=== PATIENT | female | born 1995 | race Caucasian/White ===

== ENCOUNTER 2016-07-04 06:50 | Emergency (ER) | payer OTHER ==
[2016-07-04] MEDS ORDERED: oxyCODONE 5 MG TABLET PO STA (07:23)
[2016-07-04] MEDS ORDERED: DEXAMETHASONE 10 MG/ML VIAL PO STA (07:23)
[2016-07-04] MEDS ORDERED: DEXAMETHASONE 10 MG/ML VIAL ONE (07:33)
[2016-07-04] MEDS ORDERED: CHERRY SYRUP 10 ML UDC PO ONE (07:33)
[2016-07-04] MEDS ORDERED: oxyCODONE 5 MG TABLET ONE (07:34)
[2016-07-04] MEDS ORDERED: HYDROcod/ACETAM 5/325 MG TABLET PO STA (08:21)
[2016-07-04] MEDS ORDERED: HYDROcod/ACETAM 5/325 MG TABLET ONE (08:24)
== END 2016-07-04 09:59 | disposition home or self-care (01) ==
DX: M79.661 Pain in right lower leg (principal); M54.9 Dorsalgia, unspecified; G89.29 Other chronic pain; Z98.890 Other specified postprocedural states; K60.2 Anal fissure, unspecified
CPT/HCPCS: 93971; 99283; A9270

== ENCOUNTER 2016-08-22 15:09 | Emergency (ER) | payer OTHER ==
--- NOTE | 2016-08-22 15:29 | ED Physician Documentation ---
PD HPI LOWER EXT INJURY - Stated complaint Stated Complaint: R ANKLE INJ - Chief complaint Chief Complaint: Ext Problem - History obtained from History obtained from: Patient - History of Present Illness PD HPI LOW EXT INJURY LOCATION: Right, Ankle Type of injury: Twist (she had inverted the ankle 2 weeks ago and was having still some limp with walking, then today had inversion and plantarflexion rolling the ankle. Has worse pain and swelling now. Hurts for walking.) Timing - onset: Today Timing - details: Abrupt onset, Still present Worsened by: Moving, Palpating, Other (walking) Associated symptoms: Swelling. No: Weakness, Numbness Similar symptoms before: No diagnosis (mild sprain 2 weeks ago and was not fully healed) Recently seen: Not recently seen Review of Systems Skin: denies: Abrasion (s), Laceration (s) Musculoskeletal: denies: Neck pain, Back pain Neurologic: denies: Focal weakness, Numbness PD PAST MEDICAL HISTORY - Past Medical History Cardiovascular: None Respiratory: None Neuro: None Endocrine/Autoimmune: None Musculoskeletal: Chronic back pain - Past Surgical History Past Surgical History: Yes - Present Medications Home Medications: Ambulatory Orders Medication Instructions Recorded Confirmed Docusate Sodium 250Mg Capsule 250 mg PO DAILY #30 capsule 07/04/16 [Colace 250Mg Capsule] Glycerin Adult Supp 1 each [place] DAILY #10 supp 07/04/16 Hydrocodone/Ibuprofen 07/04/16 [Hydrocodone-Ibuprofen 10-200] predniSONE [Deltasone] 20 mg PO [id number] #21 tab 07/04/16 - Allergies Allergies/Adverse Reactions: Allergies Allergy/AdvReac Type Severity Reaction Status Date / Time oxycodone AdvReac Itching Verified 08/22/16 15:16 - Social History Does the pt smoke?: No Smoking Status: Never smoker Does the pt drink ETOH?: No Does the pt have substance abuse?: No - Immunizations Immunizations are current?: Yes - POLST Patient has POLST: No PD ED PE NORMAL - Vitals Vital signs reviewed: Yes - General General: Alert and oriented X 3, No acute distress, Well developed/nourished - Derm Derm: Normal color, Warm and dry - Extremities Extremities: Other (right ankle with swelling and tenderness laterally. Achilles not tender. Toes not tender. She is most comfortable with foot in equines as hurts to pull it neutral. Normal cap refill and color. ) - Neuro Neuro: Alert and oriented X 3, No motor deficit, No sensory deficit Results - Vitals Vitals: Vital Signs - 24 hr 08/22/16 08/22/16 15:13 17:35 Temperature 36.7 C 36.8 C Heart Rate 94 78 Respiratory 14 16 Rate Blood Pressure 122/74 128/73 O2 Saturation 100 99 Oxygen O2 Source Room air - Rads (name of study) right ankle Radiology: Prelim report reviewed, EMP read contemporaneously (no fractures) PD MEDICAL DECISION MAKING - ED course Complexity details: reviewed results (no fractures, but good sprain. ), considered differential, d/w patient Departure - Departure Disposition: 01 Home, Self Care Clinical Impression: Right ankle sprain Qualifiers: Encounter type: initial encounter Involved ligament of ankle: other ligament Qualified Code(s): S93.491A - Sprain of other ligament of right ankle, initial encounter Condition: Stable Record reviewed to determine appropriate education?: Yes Instructions: ED Sprain Ankle W X Ray Follow-Up: MICK SMITH [Primary Care Provider] - Comments: Boot Orthosis when ambulating for healing time of about 3 weeks for sprain. Crutches initially as needed for pain and it is okay to progress weight bearing as tolerated. Ibuprofen and/or Tylenol as needed for pains. Elevate, ice, rest ankle often tonight and tomorrow. Recheck with PMD if not better over the next 1 -2 weeks. Forms: Activity restrictions Discharge Date/Time: 08/22/16 17:37
--- NOTE | 2016-08-22 17:14 | XRAY Preliminary Report ---
Exam: XR Ankle 3 View RT IMPRESSION: 1. Soft tissue swelling without acute fracture or dislocation. [facility] SITE ID: [id number]
--- NOTE | 2016-08-22 17:16 | XRAY Report ---
EXAM: RIGHT ANKLE RADIOGRAPHY EXAM DATE: 08/22/2016 04:52 PM. CLINICAL HISTORY: Inversion injury at the right ankle. COMPARISON: None. TECHNIQUE: 3 views. FINDINGS: Bones: Normal. No fractures or bone lesions. Joints: Normal. No effusion. No subluxations. The ankle mortise is normally aligned. Soft Tissues: Soft tissue swelling. IMPRESSION: 1. Soft tissue swelling without acute fracture or dislocation. [facility] Referring Provider Line: [phone] SITE ID: [id number]
[2016-08-22 17:36] VITALS: BP 128/73
== END 2016-08-22 17:37 | disposition home or self-care (01) ==
LOC: ED 15:09
DX: S93.401A Sprain of unspecified ligament of right ankle, initial encounter (principal); X50.1XXA Overexertion from prolonged static or awkward postures, initial encounter
CPT/HCPCS: 99282; 99283

== ENCOUNTER 2019-04-03 09:00 | Outpatient (CLI) | payer OTHER ==
[2019-04-03 21:18] LABS: TRICHOMONAS VAGINALIS DNA NEGATIVE (NEGATIVE)
== END 2019-04-03 23:59 | disposition home or self-care (01) ==
LOC: LAB.R 09:00
PROVIDERS: ATTEND Obstetrics & Gynecology
DX: Z36.85 Encounter for antenatal screening for Streptococcus B (principal)
CPT/HCPCS: 87491; 87591; 87661; 87797

== ENCOUNTER 2019-04-11 15:20 | Outpatient (CLI) | payer OTHER ==
[2019-04-11 15:49] LABS: BASOPHILS % (AUTO) 0.3 %; EOSINOPHILS # (AUTO) 0.1 10^3/uL (0.0-0.7); EOSINOPHILS % (AUTO) 0.6 %; HGB - HEMOGLOBIN 11.9 g/dL (12.0-16.0); LYMPHOCYTES # (AUTO) 3.1 10^3/uL (1.5-3.5); LYMPHOCYTES % (AUTO) 22.1 %; MEAN CORPUSCULAR HGB CONC 32.7 g/dL (32.0-36.0); MEAN CORPUSCULAR VOLUME 82.7 fL (81.0-99.0); MEAN PLATELET VOLUME 10.6 fL (7.9-10.8); MONOCYTES # (AUTO) 1.3 10^3/uL (0.0-1.0); MONOCYTES % (AUTO) 9.6 %; NEUTROPHILS # (AUTO) 9.2 10^3/uL (1.5-6.6); NEUTROPHILS % (AUTO) 66.1 %; PLT - PLATELET COUNT 259 10^3/uL (130-450); RED CELL DISTRIBUTION WIDTH 14.3 % (12.0-15.0); WHITE BLOOD COUNT 13.9 x10^3/uL (4.8-10.8)
[2019-04-11 16:01] LABS: ALBUMIN 3.2 g/dL (3.2-5.5); ALBUMIN/GLOBULIN RATIO 0.8 (1.0-2.2); BILIRUBIN,TOTAL 0.3 mg/dL (0.2-1.0); CALCIUM 9.1 mg/dL (8.5-10.3); CREATININE 0.6 mg/dL (0.4-1.0); TOTAL PROTEIN 7.3 g/dL (6.7-8.2)
[2019-04-11 16:11] LABS: CREATININE,URINE 207.5 mg/dL; PROTEIN/CREATININE RATIO,URINE 0.1 (<=0.2)
[2019-04-11 16:37] VITALS: BP 120/69
--- NOTE | 2019-04-11 17:56 | PROVIDER PROGRESS NOTE ---
- HPI Chief Complaint: Headache (blured vision epigastric vision. abdominal pain. no bleeding) Current : Current EDU 05/08/19 Gestation 36 Weeks and 1 Days 3 Para 1 Vital Signs Temperature 36.8 C 04/11/19 15:35 Heart Rate 98 04/11/19 15:35 Respiratory Rate 16 04/11/19 15:35 Blood Pressure 122/68 04/11/19 15:35 O2 Saturation 99 04/11/19 15:35 Temperature 36.8 C 04/11/19 15:35 Heart Rate 95 04/11/19 15:46 Respiratory Rate 16 04/11/19 15:35 Blood Pressure 120/69 04/11/19 16:15 O2 Saturation 99 04/11/19 15:35 - Procedures OB Procedure Performed: NST (reactive) NST Procedure: NST Procedure Start Date 04/11/19 Start Time 15:30 Stop Time 16:24 Vibroacoustic Stimulation Used Yes Patient States Movement Yes Procedure Details: Labs normal. P/C 0.1 - Plan Plan: ultrasound to RO abruption
--- NOTE | 2019-04-11 19:33 | Ultrasound Report ---
Reason: abd pain Procedure Date: 04/11/2019 Accession Number: [id number] / [id number] Procedure: US - Abdomen Limited CPT Code: Final Report FULL RESULT: EXAM: ABDOMEN ULTRASOUND LIMITED, RUQ EXAM DATE: 04/11/2019 06:48 PM. CLINICAL HISTORY: Abdominal pain. COMPARISON: None. TECHNIQUE: Real-time scanning was performed with static images obtained. FINDINGS: Liver: Normal in size and echotexture. 16.2 cm. Main portal vein flow: Hepatopetal. Gallbladder: Normal. No stones, wall thickening, or sonographic Salvador's sign. Biliary System: CBD measures 4 mm. No intrahepatic or extrahepatic ductal dilatation. Other: The right kidney is unremarkable without hydronephrosis. IMPRESSION: Normal. [facility]
--- NOTE | 2019-04-11 19:47 | Ultrasound Report ---
Reason: r/o abruption Procedure Date: 04/11/2019 Accession Number: [id number] / [id number] Procedure: US - OB Limited CPT Code: Final Report FULL RESULT: EXAM: LIMITED OBSTETRICAL ULTRASOUND EXAM DATE: 04/11/2019 06:51 PM. CLINICAL HISTORY: Abdominal pain, evaluate for placental abruption. COMPARISON: ABDOMEN LIMITED 04/11/2019 6:19 PM. TECHNIQUE: Real-time sonographic evaluation of the fetus performed by the technical manager chemical plant. Multiple customer loyalty representative static images were saved for review. DATING: Established EGA 36 with SHANA 05/08/2019. GENERAL EVALUATION Hollis . Cardiac activity: 135 bpm. movement: Visualized. Presentation: Cephalic. Placenta: Posterior fundal position. Mildly limited visualization. No evidence of abruption. Amniotic fluid: Normal. MARISSA 14.4 cm. MVP 4.4 cm. IMPRESSION: 1. Hollis live intrauterine with gestational age 36 weeks 1 day based on established SHANA. 2. No evidence for placental abruption. [facility]
== END 2019-04-11 19:35 | disposition home or self-care (01) ==
LOC: WFO 15:20 → FBP 15:21 → WFO 19:35
PROVIDERS: ATTEND Obstetrics & Gynecology
DX: O99.89 Other specified diseases and conditions complicating pregnancy, childbirth and the puerperium (principal); R10.9 Unspecified abdominal pain; R51 Headache; H53.8 Other visual disturbances; Z3A.36 36 weeks gestation of pregnancy
CPT/HCPCS: 36415; 59025; 76705; 76815; 80053; 82570; 83615; 84156; 84450; 84550; 85025; 85384; 99213

== ENCOUNTER 2019-05-02 11:50 | Outpatient (CLI) | payer OTHER ==
--- NOTE | 2019-05-03 15:48 | Ultrasound Report ---
Reason: SCREENING FOR MACROSOMIA Procedure Date: 05/02/2019 Accession Number: [id number] / [id number] Procedure: US - OB F/U or Repeat CPT Code: Final Report FULL RESULT: EXAM: FOLLOW-UP OBSTETRICAL ULTRASOUND EXAM DATE: 05/02/2019 12:44 PM. CLINICAL HISTORY: macrosomia COMPARISON: OB LIMITED 04/11/2019 6:03 PM. TECHNIQUE: Real-time sonographic evaluation of the fetus performed by the churn driller. Multiple product representative static images were saved for review. DATING: Established EGA 39 weeks 1 day with SHANA 05/08/2019 based on LMP. EGA 39 weeks 5 days with SHANA 05/04/2019 based on stated dating. EGA 40 weeks 0 days with SHANA 05/02/2019 based on the current ultrasound. GENERAL EVALUATION Hollis . Cardiac activity: 121 bpm. movement: Visualized. Presentation: Cephalic. Placenta: Posterior and right position. Amniotic fluid: Normal. MARISSA 12.2 cm. MVP 3.5 cm. BIOMETRY Bi-Parietal Diameter (BPD): 9.6 cm, 39 weeks 0 days Head Circumference (HC): 35 cm, 40 weeks 6 days Abdominal Circumference (AC): 37.6 cm, 41 weeks 2 days Femur Length (FL): 7.5 cm, 38 weeks 4 days Head circumference to abdomen circumference ratio 0.94. Estimated Weight: 4085 g, 87th percentile for 39 weeks 5 days. IMPRESSION: 1. Estimated weight 4085 g, 87th percentile using 39 weeks 5 days. 2. Cephalic inferior position. Normal amniotic fluid volume. [facility]
== END 2019-05-02 11:51 | disposition home or self-care (01) ==
LOC: DI 11:50
PROVIDERS: ATTEND Obstetrics & Gynecology
DX: Z36.88 Encounter for antenatal screening for fetal macrosomia (principal); O99.820 Streptococcus B carrier state complicating pregnancy; Z3A.39 39 weeks gestation of pregnancy
CPT/HCPCS: 76816

== ENCOUNTER 2019-05-05 16:52 | Inpatient (IN) | payer OTHER ==
[2019-05-05] MEDS ORDERED: SODIUM CHLORIDE FLUSH 0.9% 10 ML SYRINGE IVP PRN (17:40)
[2019-05-05] MEDS ORDERED: METHYLERGONOVINE 0.2 MG/ML AMP IM PRN (17:40)
[2019-05-05] MEDS ORDERED: fentaNYL 100 MCG/2 ML VIAL IVP PRN (17:40)
[2019-05-05] MEDS ORDERED: ONDANSETRON ODT 4 MG TABLET TL PRN (17:40)
[2019-05-05] MEDS ORDERED: CARBOPROST TROMETHAMINE 250 MCG/ML AMP IM PRN (17:40)
[2019-05-05] MEDS ORDERED: AMPICILLIN 2 GM in SODIUM CHLORIDE 0.9% MINIBAG 100 ML IV ONE (17:40)
[2019-05-05] MEDS ORDERED: ACETAMINOPHEN 325 MG TABLET PO PRN (17:40)
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
[2019-05-05] MEDS ORDERED: ZOLPIDEM 5 MG TABLET PO PRN (17:44)
[2019-05-05 18:20] LABS: BASOPHILS # (AUTO) 0.1 10^3/uL (0.0-0.1); BASOPHILS % (AUTO) 0.4 %; EOSINOPHILS # (AUTO) 0.1 10^3/uL (0.0-0.7); LYMPHOCYTES # (AUTO) 3.7 10^3/uL (1.5-3.5); LYMPHOCYTES % (AUTO) 30.1 %; MEAN CORPUSCULAR HEMOGLOBIN 26.1 pg (27.0-31.0); MEAN CORPUSCULAR VOLUME 81.7 fL (81.0-99.0); MEAN PLATELET VOLUME 10.8 fL (7.9-10.8); MONOCYTES # (AUTO) 1.2 10^3/uL (0.0-1.0); NEUTROPHILS % (AUTO) 57.6 %; PLT - PLATELET COUNT 249 10^3/uL (130-450); RED BLOOD COUNT 4.59 10^6/uL (4.20-5.40); RED CELL DISTRIBUTION WIDTH 15.3 % (12.0-15.0); WHITE BLOOD COUNT 12.2 x10^3/uL (4.8-10.8)
[2019-05-05] MEDS: miSOPROStoL 100 MCG TABLET PO SCH ×2 (18:38→22:27)
[2019-05-05] MEDS ORDERED: AMPICILLIN 1 GM in SODIUM CHLORIDE 0.9% MINIBAG 100 ML IV SCH (22:00)
[2019-05-05] MEDS: SODIUM CHLORIDE FLUSH 0.9% 10 ML SYRINGE IVP SCH (22:28)
[2019-05-06] MEDS: miSOPROStoL 100 MCG TABLET PO SCH (02:33)
--- NOTE | 2019-05-06 07:02 | PROVIDER PROGRESS NOTE ---
Labor Progress Note - Labor Progress Note Labor Progress Note/Additional Text: S: painful cramping and back pain since about 4h ago O: Cat 1 NST [place] 3UC in 10min SVE fingertip/80/-3/med/post IOL balloon placed without difficulty A/P: P0 elective/LGA IOL, latent. Stop miso due to UCs. Still unfavorable so placed balloon and start pitocin.
[2019-05-06] MEDS ORDERED: OXYTOCIN/DEXTROSE 5 % 30 UNIT/500 ML BAG IV SCH (08:00)
[2019-05-06] MEDS: SODIUM CHLORIDE FLUSH 0.9% 10 ML SYRINGE IVP SCH ×2 (08:32→22:57)
[2019-05-06] MEDS ORDERED: valACYclovir 500 MG TABLET PO SCH (09:00)
[2019-05-06] MEDS: LACTATED RINGERS 1,000 ML IV SCH ×2 (09:11→11:19)
[2019-05-06] MEDS ORDERED: ROPIVACAINE 0.2% 200 MG/100 ML BAG EP ONE (09:37)
[2019-05-06] MEDS ORDERED: ROPIVACAINE 0.2% PF 20ML VIAL ONE (09:37)
[2019-05-06] MEDS ORDERED: ePHEDrine 50 MG/ML VIAL IVP PRN (10:16)
[2019-05-06] MEDS ORDERED: diphenhydrAMINE INJ 50 MG/ML VIAL IVP PRN (10:16)
[2019-05-06] MEDS ORDERED: LACTATED RINGERS 500 ML IV ONE (10:16)
[2019-05-06] MEDS ORDERED: NALBUPHINE 10 MG/ML AMP IVP PRN (10:16)
[2019-05-06] MEDS ORDERED: NALOXONE 0.4 MG/ML VIAL IVP PRN (10:16)
[2019-05-06] MEDS ORDERED: METOCLOPRAMIDE 10 MG/2 ML VIAL IVP PRN (10:16)
--- NOTE | 2019-05-06 10:20 | ANESTHESIA ---
Pre-Anesthesia VS, & Labs - Diagnosis term labor, IUP - Procedure vaginal delivery Height 5 ft 9 in Weight (kg) 131.542 kg Body Mass Index 36.9 - NPO Last Food Intake: breakfast@829 - Is Patient ?: Yes - Lab Results Current Lab Results: Laboratory Tests 05/05/19 18:10: Blood Type A NEGATIVE, Antibody Screen NEGATIVE 05/05/19 18:10: WBC 12.2 H, RBC 4.59, Hgb 12.0, Hct 37.5, MCV 81.7, MCH 26.1 L, MCHC 32.0, RDW 15.3 H, Plt Count 249, MPV 10.8, Neut # (Auto) 7.0 H, Lymph # (Auto) 3.7 H, [place] # (Auto) 1.2 H, Eos # (Auto) 0.1, Baso # (Auto) 0.1, Absolute Nucleated RBC 0.00, Nucleated RBC % 0.0 Lab results reviewed: Yes Fish Bones: 05/05/19 18:10 Home Medications and Allergies Active Medications Acetaminophen (Tylenol) 650 mg PO Q6H PRN PRN Reason: Pain or Fever Fentanyl (Fentanyl) 50 mcg IVP Q1H PRN PRN Reason: PAIN Ampicillin Sodium 1 gm/ Sodium (Chloride) 100 mls @ 200 mls/hr IV Q4H [facility] Lactated Ringer's (Lr) 1,000 mls @ 100 mls/hr IV .Q10H [facility] Last Admin: 05/06/19 09:11 Dose: 100 mls/hr Oxytocin/Dextrose (Pitocin/Dextrose 5%) 30 unit in 500 mls @ 1 mls/hr IV TITR [facility]; Protocol Last Admin: 05/06/19 09:10 Dose: 1 milliunit/min, 1 mls/hr Methylergonovine Maleate (Methergine Inj) 0.2 mg IM Q4H PRN PRN Reason: Post- Hemorrhage Ondansetron HCl (Zofran Odt) 4 mg TL Q6H PRN PRN Reason: Nausea / Vomiting Sodium Chloride (Normal Saline Flush 0.9%) 10 ml IVP 0100,0900,1700 [facility] Last Admin: 05/06/19 08:32 Dose: 10 ml Sodium Chloride (Normal Saline Flush 0.9%) 10 ml IVP PRN PRN PRN Reason: NEEDED PER PROVIDER ORDERS Valacyclovir HCl (Valtrex) 500 mg PO DAILY [facility] Last Admin: 05/06/19 08:32 Dose: 500 mg Zolpidem Tartrate (Ambien) 5 mg PO QPM PRN PRN Reason: Insomnia Last Admin: 05/05/19 23:23 Dose: 5 mg Hydrocodone/Ibuprofen [Hydrocodone-Ibuprofen 10-200] 07/04/16 Allergies/Adverse Reactions: Allergies Allergy/AdvReac Type Severity Reaction Status Date / Time oxycodone AdvReac Itching Verified 08/22/16 15:16 shrimp AdvReac Itching Verified 05/06/19 03:53 Anes History & Medical History - Anesthetic History Anesthesia Complications: reports: No previous complications Family history of Anesthesia Complications: Denies Family history of Malignant Hyperthermia: Denies - Medical History Cardiovascular: reports: None Pulmonary: reports: None Neuro: reports: Other (sciatica, low back pain, frequent tingling in lower extremities w/pain) Musculoskeletal: reports: Chronic back pain Endocrine/Autoimmune: reports: None Smoking Status: Never smoker - Surgical History Gynecologic: Dilation and currettage Orthopedic: Other (microdiscetomy x2 at L4-5) Exam General: Alert, Oriented x3, Cooperative Dental: WNL Mouth Openin Fingerbreadth Neck Mobility: Normal Mallampati classification: II Thyromental Distance: 4-6 cm Respiratory: No respiratory distress Cardiovascular: Regular rate Mental/Cognitive Status: Alert/Oriented X3, Normal for patient Cognitive Status: Within normal limits Plan Anesthesia Type: Epidural Consent for Procedure(s) Verified and Reviewed: Yes Code Status: Attempt Resuscitation ASA classification: 2-Mild systemic disease Is this case an emergency?: No
[2019-05-06] MEDS: ONDANSETRON 4 MG/2 ML VIAL IVP PRN ×2 (11:17→21:32)
--- NOTE | 2019-05-06 11:45 | CONSULTATION NOTE ---
Consultation Report: Call to [id number] for reports that epidural has moved up to armpits and pt is nauseated w/BP 88/65. Ordered pump off, 500cc fluid bolus as well as Ephedrine 5mg IV. BP stabilized upon arrival 125SBP, pt states N/V is better. Zofran was also administered prior to arrival. Ephedrine not given as BP normalized prior to administration. Sensory level appreciated at T8 on L, T5-6 @R. Pump restarted at 10cc/hr with 4cc PCEA q10 if desired. Pt states she feels pressure with contractions, no pain. Will continue to follow.
[2019-05-06] MEDS ORDERED: AMPICILLIN 2 GM in SODIUM CHLORIDE 0.9% MINIBAG 100 ML IV SCH (13:00)
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
--- NOTE | 2019-05-06 17:20 | CONSULTATION NOTE ---
Consultation Report: Pt with complaints of new and increasing pain with contractions. Sensory level assessed at T12 bilaterally and both legs are "heavy". Epidural dosed with 10cc 0.2% in 2 divided 5cc injections. Pt states relief of discomfort. VSS.
[2019-05-06] MEDS: ROPIVACAINE 0.2% 200 MG/100 ML BAG EP PRN (18:14)
[2019-05-06] MEDS: AMPICILLIN 1 GM in SODIUM CHLORIDE 0.9% MINIBAG 100 ML IV SCH ×2 (18:21→23:01)
[2019-05-06] MEDS ORDERED: CALCIUM CARBONATE CHEW 500 MG TABLET PO PRN (21:34)
[2019-05-06] MEDS ORDERED: CITRIC ACID/SODIUM CITRATE 15 ML UDC PO ONE (21:34)
[2019-05-06] MEDS ORDERED: fentaNYL 100 MCG/2 ML VIAL ONE (21:58)
--- NOTE | 2019-05-06 22:13 | CONSULTATION NOTE ---
Consultation Report: Call to 2101 for new discomfort with contractions 2mins apart. Sensory level assessed at T10@R, T12@L, able to move both feet but not able to lift legs from bed. Epidural bolused with Fentanyl 100mcg in 8cc PFNS. Pt states warm sensation to pelvic area and contraction pain now "70%" better, 3 mins post injection.
--- NOTE | 2019-05-06 22:33 | PROVIDER PROGRESS NOTE ---
Labor Progress Note - Labor Progress Note Labor Progress Note/Additional Text: Comfortable with re-bolus AVSS Category 1 NST MVU about 165 Pit[place] at 20 SVE 5-6/90/-2 A/P: challenge is to get adequate contractions. Progressive SVE change. Continue to work up on pitocin to max of 30.
[2019-05-07] MEDS: ROPIVACAINE 0.2% 200 MG/100 ML BAG EP PRN (00:09)
--- NOTE | 2019-05-07 00:50 | PROVIDER PROGRESS NOTE ---
Labor Progress Note - Labor Progress Note Labor Progress Note/Additional Text: Cat 1 NST AVSS MVU's about 200 now for 2h SVE 6-7//-2. Continued SVE change, slower than expected, but progressive. Baby tolerating labor well. Plan to recheck in 1-2h more.
[2019-05-07] MEDS: SODIUM CHLORIDE FLUSH 0.9% 10 ML SYRINGE IVP SCH (02:15)
[2019-05-07] MEDS ORDERED: ROPIVACAINE 0.5% PF 20 ML AMPULE ONE ×2 (02:53)
--- NOTE | 2019-05-07 03:00 | PROVIDER PROGRESS NOTE ---
Subjective - Subjective Subjective: Had to turn off pit due to a period of marked variability. SVE now 5cm/90/-2. Pt advised that it is unlikely that she will deliver vaginally due to failure to progress. recommended and accepted. Objective - Vital Signs/Intake & Output Intake & Output: Intake & Output 05/04/19 05/05/19 05/06/19 05/07/19 23:59 23:59 23:59 23:59 Intake Total 800 815.000 400 Output Total 1770 1500 Balance 800 -955.000 -1100 - Lab Results Fish Bones: 05/05/19 18:10 Other Labs: Lab Results x24hrs 05/05/19 05/05/19 Range/Units 18:10 17:45 Blood Type A NEGATIVE Blood Type Recheck A NEGATIVE Antibody Screen NEGATIVE Crossmatch IS Only See Detail
[2019-05-07] MEDS ORDERED: ceFAZolin 2 GM in SODIUM CHLORIDE 0.9% 100ML 100 ML IV ONE (03:06)
[2019-05-07] MEDS ORDERED: ONDANSETRON 4 MG/2 ML VIAL IVP ONE (03:16)
[2019-05-07] MEDS ORDERED: LIDOCAINE-MPF 2% 5 ML VIAL IM ONE (03:16)
[2019-05-07] MEDS ORDERED: MORPHINE PF 5 MG/10 ML AMP EP ONE (03:16)
[2019-05-07] MEDS ORDERED: KETOROLAC 30 MG/ML VIAL IVP ONE (03:16)
[2019-05-07] MEDS ORDERED: ACETAMINOPHEN 1,000 MG/100 ML 100 ML IV ONE (03:16)
[2019-05-07] MEDS ORDERED: LACTATED RINGERS 1,000 ML IV ONE ×2 (03:29→04:24)
[2019-05-07] MEDS ORDERED: SODIUM CHLORIDE FLUSH 0.9% 10 ML SYRINGE IVP PRN (04:51)
[2019-05-07] MEDS ORDERED: WITCH HAZEL/GLYCERIN 1 PAD TOP PRN (04:51)
[2019-05-07] MEDS ORDERED: HYDROCORTISONE 1% CREAM 28 GM TUBE PR PRN (04:51)
[2019-05-07] MEDS ORDERED: OXYTOCIN/DEXTROSE 5 % 30 UNIT/500 ML BAG IV PRN (04:56)
--- NOTE | 2019-05-07 04:59 | OPERATIVE REPORT ---
Operative Report - General Admit Date: 05/05/19 - Other Other Information/Narrative: preop: failure to progress, iup at 39w postop: same procedure: primary low transverse Surg: me Assist: Tabler Anes: epidural EBL 500 IVF 1300 UOP 125 complic none dispo recovery specimens cord blood for type
[2019-05-07] MEDS ORDERED: ACETAMINOPHEN 500 MG TABLET PO SCH (05:00)
--- NOTE | 2019-05-07 07:43 | OPERATIVE REPORT ---
DATE OF SERVICE: 05/07/2019 Physician: Re Fernández MD PREOPERATIVE DIAGNOSIS: Intrauterine at 39 weeks and failure to progress. POSTOPERATIVE DIAGNOSIS: Status post primary section. PROCEDURE PERFORMED: Primary low transverse section. SURGEON: Re Fernández MD RN WELLNESS: Ondina Glass MD ANESTHESIA: Epidural. ESTIMATED BLOOD LOSS: 500 mL INTRAVENOUS FLUIDS: 1300 mL of crystalloid. URINE OUTPUT: 125 mL, clear. COUNTS: Correct x2. COMPLICATIONS: None apparent. DISPOSITION: Stable to the recovery room. PROPHYLAXIS: SCDs to bilateral lower extremities. Ancef 2 grams prior to skin incision. SPECIMENS: Umbilical cord blood sent for typing. FINDINGS: Liveborn female, weight is pending. Apgars 9 at 1 minute and 9 at 5 minutes. Normal uter us, ovaries, and fallopian tubes. Thick meconium-stained amniotic fluid. COUNSELING: Patient is a 23-year-old G3, P0 at 39 weeks, undergoing induction of labor for an estima gardenia weight of 9-1/2 pounds and the father of the baby leaving on deployment in 3 weeks. She re ceived an epidural for pain control. She was induced with misoprostol followed by a cervical ripenin g balloon followed by Pitocin. Her Pitocin was up to 30 milliunits per minute. It took quite some t rafal to get adequate contractions on the Pitocin. This was achieved eventually. From 4 cm to 6 cm, p atient had a very slow dilation course over more than 6 hours. After her Pitocin was turned off, bec ause of a period of marked variability, her cervical exam went from 6 to 7 cm back to 5 cm. The stat ion was always -2. With the lack of descent and lack of cervical dilation, the patient was advised t hat she was unlikely to be able to deliver vaginally and primary was recommended. The proc edure was described as was recovery. Risks including, but not limited to bleeding, infection, trauma to local organs, anesthesia complications and problems with future pregnancies because of scar tissu e on the uterus were discussed. All questions were answered and the operative consent was signed. T he alternative of further trials of vaginal delivery was not encouraged. DESCRIPTION OF PROCEDURE: Patient was brought to the operating room where her existing epidural was bolused. Her SCDs and Kam catheter were also preexisting. She was placed in a left tilt and prepp ed and draped in the usual sterile fashion. A scalpel was used to make a Pfannenstiel skin incision in the area of the patient's pannus fold. This was carried down to the fascia, which was nicked in t he midline bilaterally. The fascial incision was extended laterally and slightly superiorly. Hero s were placed on the inferior margin and the fascial incision and the fascia was bluntly and sharply dissected off of the underlying rectus. The same was performed superiorly. The peritoneum was blunt ly entered. The incision was stretched and room was deemed to be adequate. A bladder retractor was placed. A scalpel was used to make a transverse incision in the lower uterine segment. The uterine cavity was entered with a finger. The uterine incision was extended laterally by applying pressure c audally and cranially. The head was elevated easily and then delivered with the assistance of fundal pressure. The shoulders and body easily followed. The cord was left pulsating for 30 seconds and the baby was vigorous. The cord was clamped x2 and cut and the baby was handed to the pediatric ha in waiting. The placenta was delivered with external uterine massage. The uterine cavity was cu retted with a dry sponge until there was no return of membranes. The uterine incision was closed wit h a running layer of 0 Vicryl. A second imbricating layer was performed. Hemostasis was excellent, and the uterine incision fascia and rectus. The fascia was closed with 0 Vicryl. The subcutaneous t issues were irrigated and then reapproximated with interrupted sutures of 2-0 Vicryl. The skin was c losed with 4-0 Monocryl. Dermabond was then applied. Fundal massage yielded a normal amount of bloo d and clot. TD: 05/07/2019 04:46
[2019-05-07] MEDS ORDERED: HYDROmorphone 1 MG/ML CARPUJECT IVP ONE (08:30)
[2019-05-07] MEDS: HYDROcod/ACETAM 5/325 MG TABLET PO PRN ×4 (08:36→22:14)
[2019-05-07] MEDS: SIMETHICONE CHEW 80 MG TABLET PO SCH (08:36)
[2019-05-07] MEDS: DOCUSATE SODIUM 100 MG CAPSULE PO SCH (08:36)
[2019-05-07] MEDS ORDERED: SODIUM CHLORIDE FLUSH 0.9% 10 ML SYRINGE IVP SCH (09:00)
[2019-05-07] MEDS: KETOROLAC 30 MG/ML VIAL IVP PRN ×2 (11:56→18:13)
[2019-05-07] MEDS ORDERED: RHO(D) IMMUNE GLOBULIN 300 MCG SYRINGE IM ONE (20:48)
--- NOTE | 2019-05-07 22:15 | PROVIDER PROGRESS NOTE ---
Subjective - Prog Note Date Prog Note Date: 05/07/19 Prog Note Time: 22:12 - Subjective Pt reports feeling: Improved Subjective: POD#0 s/p LTCS Doing well. Up and out of bed. Kam catheter remains in place. Tolerating po. Pain well managed if meds given on schedule. Objective - Vital Signs/Intake & Output Vital Signs: Vital Signs x48h Temp Pulse Resp BP BP Pulse Ox 05/07/19 19:50 98.8 F 90 18 113/53 L 98 05/07/19 14:35 98.2 F 102 H 18 107/65 98 Intake & Output: Intake & Output 05/04/19 05/05/19 05/06/19 05/07/19 23:59 23:59 23:59 23:59 Intake Total 800 815.000 400 Output Total 1770 4230 Balance 800 -955.000 -3830 - Objective General Appearance: positive: No acute distress Respiratory: positive: No respiratory distress Cardiovascular: positive: Regular rate & rhythm Abdomen: positive: Other (appropriately tender FF below umbi Incision CDI with dermabond in place) Extremities: positive: Non-tender Neurologic/Psychiatric: positive: Oriented x3 - Lab Results Fish Bones: 05/05/19 18:10 Other Labs: Lab Results x24hrs 05/07/19 Range/Units 09:43 Blood Type A NEGATIVE Maternal Bleed NEGATIVE (NEGATIVE) Assessment/Plan - Problem List (1) deliv NOS-unsp Impression: POD#0 s/p LTCS Routine post op care DC Kam in am Encourage ambulation Transition to po pain meds Tolerating po Rhogam given for Rh incompatibility Cont in-patient care
[2019-05-08] MEDS: DOCUSATE SODIUM 100 MG CAPSULE PO SCH ×3 (00:16→22:03)
[2019-05-08] MEDS: KETOROLAC 30 MG/ML VIAL IVP PRN (00:16)
[2019-05-08] MEDS: HYDROcod/ACETAM 5/325 MG TABLET PO PRN ×6 (02:05→22:03)
[2019-05-08] MEDS: SIMETHICONE CHEW 80 MG TABLET PO SCH ×4 (04:27→22:03)
[2019-05-08] MEDS: IBUPROFEN 600 MG TABLET PO SCH ×4 (06:10→23:58)
[2019-05-08 07:55] LABS: BASOPHILS # (AUTO) 0.1 10^3/uL (0.0-0.1); BASOPHILS % (AUTO) 0.5 %; EOSINOPHILS # (AUTO) 0.1 10^3/uL (0.0-0.7); EOSINOPHILS % (AUTO) 0.9 %; HGB - HEMOGLOBIN 10.1 g/dL (12.0-16.0); LYMPHOCYTES # (AUTO) 2.9 10^3/uL (1.5-3.5); LYMPHOCYTES % (AUTO) 22.2 %; MEAN CORPUSCULAR HEMOGLOBIN 26.9 pg (27.0-31.0); MEAN CORPUSCULAR HGB CONC 32.1 g/dL (32.0-36.0); MEAN PLATELET VOLUME 11.1 fL (7.9-10.8); MONOCYTES % (AUTO) 7.5 %; NEUTROPHILS # (AUTO) 8.9 10^3/uL (1.5-6.6); PLT - PLATELET COUNT 206 10^3/uL (130-450); RED BLOOD COUNT 3.75 10^6/uL (4.20-5.40); RED CELL DISTRIBUTION WIDTH 15.9 % (12.0-15.0); WHITE BLOOD COUNT 13.1 x10^3/uL (4.8-10.8)
--- NOTE | 2019-05-08 17:46 | PROVIDER PROGRESS NOTE ---
Subjective - Prog Note Date Prog Note Date: 05/08/19 Prog Note Time: 08:45 - Subjective Pt reports feeling: Improved Subjective: Doing well. Kam removed and has voided. Ambulating within room. Pain well managed. BF going well Objective - Vital Signs/Intake & Output Vital Signs: Vital Signs x48h Temp Pulse Resp BP Pulse Ox 05/08/19 15:58 98.2 F 94 18 115/66 100 Intake & Output: Intake & Output 05/05/19 05/06/19 05/07/19 05/08/19 23:59 23:59 23:59 23:59 Intake Total 800 815.000 400 Output Total 1770 4230 1000 Balance 800 -955.000 -3830 -1000 - Objective General Appearance: positive: No acute distress Neck: positive: Nml inspection Respiratory: positive: No respiratory distress, Breath sounds nml Cardiovascular: positive: Regular rate & rhythm Abdomen: positive: Other (Incision line CDI; dermabond over incision only FF below umbi. appropriately tender) Extremities: positive: Non-tender, No pedal edema Neurologic/Psychiatric: positive: Oriented x3 - Lab Results Fish Bones: 05/08/19 07:19 Other Labs: Lab Results x24hrs 05/08/19 05/05/19 Range/Units 07:19 18:10 WBC 13.1 H (4.8-10.8) x10^3/uL RBC 3.75 L (4.20-5.40) 10^6/uL Hgb 10.1 L (12.0-16.0) g/dL Hct 31.5 L (37.0-47.0) % MCV 84.0 (81.0-99.0) fL MCH 26.9 L (27.0-31.0) pg MCHC 32.1 (32.0-36.0) g/dL RDW 15.9 H (12.0-15.0) % Plt Count 206 (130-450) 10^3/uL MPV 11.1 H (7.9-10.8) fL Neut # (Auto) 8.9 H (1.5-6.6) 10^3/uL Lymph # (Auto) 2.9 (1.5-3.5) 10^3/uL Gillespie # (Auto) 1.0 (0.0-1.0) 10^3/uL Eos # (Auto) 0.1 (0.0-0.7) 10^3/uL Baso # (Auto) 0.1 (0.0-0.1) 10^3/uL Absolute Nucleated RBC 0.00 x10^3/uL Nucleated RBC % 0.0 /100WBC Crossmatch IS Only See Detail Assessment/Plan - Problem List (1) deliv NOS-unsp Impression: POD#1 s/p LTCS Place steristrips to reinforce incision Routine post op care Voiding Encourage ambulation Transition to po pain meds Tolerating po Rhogam given for Rh incompatibility Cont in-patient care Anticipate DC home in am
[2019-05-09] MEDS: HYDROcod/ACETAM 5/325 MG TABLET PO PRN ×4 (01:52→14:48)
[2019-05-09] MEDS: SIMETHICONE CHEW 80 MG TABLET PO SCH ×2 (05:51→14:48)
[2019-05-09] MEDS: IBUPROFEN 600 MG TABLET PO SCH ×2 (05:51→14:49)
[2019-05-09 09:34] VITALS: BP 95/48
[2019-05-09] MEDS: DOCUSATE SODIUM 100 MG CAPSULE PO SCH (09:41)
--- NOTE | 2019-05-09 12:06 | PROVIDER PROGRESS NOTE ---
Subjective - Prog Note Date Prog Note Date: 05/09/19 Prog Note Time: 11:04 - Subjective Subjective: Patient doing well. Up and ambulating, tolerating po, pain well managed with scheduled pain meds. Voiding. BF going well. Objective - Vital Signs/Intake & Output Vital Signs: Vital Signs x48h Temp Pulse Resp BP Pulse Ox 05/09/19 09:33 99.0 F 98 18 95/48 L 96 05/09/19 05:36 97.7 F 83 16 125/53 L 97 Intake & Output: Intake & Output 05/06/19 05/07/19 05/08/19 05/09/19 23:59 23:59 23:59 23:59 Intake Total 815.737 887 7230 Output Total 1770 4230 1000 Balance -955.000 -3830 0 - Objective General Appearance: positive: No acute distress Neck: positive: Nml inspection Respiratory: positive: Chest non-tender Abdomen: positive: Other (Incision line CDI with steristrips in place. FF below umbi; appropriately tender.) Skin: positive: Color nml Extremities: positive: Non-tender, No pedal edema Neurologic/Psychiatric: positive: Oriented x3 - Lab Results Fish Bones: 05/08/19 07:19 Other Labs: Lab Results x24hrs 05/05/19 Range/Units 18:10 Crossmatch IS Only See Detail Assessment/Plan - Problem List (1) deliv NOS-unsp Impression: Doing well Meeting goals for discharge Routine discharge instructions given
--- NOTE | 2019-05-09 12:26 | DISCHARGE SUMMARY ---
Discharge Summary Admit Date: 05/05/19 Discharge Date: 05/09/19 Discharging Provider: Jaron Banks Facility Name: [facility] - DIAGNOSES Admission Diagnoses: IUP at 39w4d EGA Elective induction of labor Suspected large for gestational age infant Discharge Diagnoses with Status of Each Condition: Same and delivery of term gestation via due to failure to progress - HPI History of Present Illness: 23yo at 39w4d by LMP c/w 7w US admitted for elective induction of labor due to pending deployment of FOB and suspected fetus. - HOSPITAL COURSE Hospital Course: Patient was admitted for elective induction of labor at 39w4d ega. GBS positive; received ampicillin for prophylaxis. Underwent cervical ripening with misoprostol and rees balloon placement. Received pitocin for induction. IUPC was placed and MVUS were maintained at 200 for 2 hours without change in cervical dilation. Reached max dilation of 6-7 cm. Epidural for pain management. Opted to proceed with . Procedure was uncomplicated and well tolerated. Delivered a female with Apgars of 9/9 weighing 3735g. Postoperative course was uncomplicated. Rhogam given during postoperative period. Discharged to home on POD#2. - ALLERGIES Allergies/Adverse Reactions: Allergies Allergy/AdvReac Type Severity Reaction Status Date / Time oxycodone AdvReac Itching Verified 08/22/16 15:16 shrimp AdvReac Itching Verified 05/06/19 03:53 - MEDICATIONS Home Medications: Ambulatory Orders Medication Instructions Recorded Confirmed Docusate Sodium 250Mg Capsule 250 mg PO DAILY #30 capsule 07/04/16 [Colace 250Mg Capsule] Glycerin Adult Supp 1 each MA DAILY #10 supp 07/04/16 Hydrocodone/Ibuprofen 07/04/16 [Hydrocodone-Ibuprofen 10-200] predniSONE [Deltasone] 20 mg PO [id number] #21 tab 07/04/16 - LABS Result Diagrams: 05/08/19 07:19 - FOLLOW UP Follow Up: 1 week with Jaron or Spencer - TIME SPENT Time Spent in Discharge (Minutes): 30
--- NOTE | 2019-05-09 18:06 | Labor Flowsheet ---
Labor Flowsheet Datetime Report Generated by CPN: 05/09/2019 18:06 Datetime: 05/07/2019 04:18 Membranes Ruptured Date/Time: 05/07/2019 15:58 Datetime: 05/07/2019 03:13 UTERINE ACTIVITY Monitor Mode: IUPC out - no uterine monitoring in preparation for c/s ASSESSMENT A Monitor Mode: External US FHR Baseline Rate : 140 Variability: Moderate 6-25 bpm Accelerations: 10X10 Decelerations: None Category: Category I COMMUNICATION Communication: (OR)Circulating RN at bedside and assists anesthesia provider in bringing patient to OR via labor bed. FOB accompanies patient to entrance to OR then is seated in PACU waiting room. Datetime: 05/07/2019 03:03 Pulse: 100 SpO2 (%): 100 LaborFlag: Labor Datetime: 05/07/2019 03:00 Frequency (min): q3 Quality: Moderate Duration (sec): 50-80 Pattern: Normal: <= 5 Contractions in 10 Minutes Resting Tone (Palpate): Relaxed Monitor Interventions for FHR: Ultrasound Adjusted PAIN Pain Scale: 0 Datetime: 05/07/2019 02:57 Patient Care Comments: gown changed, FOB changes into surgical attire Datetime: 05/07/2019 02:51 Vaginal Exam Comments: FSE and IUPC discontinued Datetime: 05/07/2019 02:47 Communication Comments: provider made aware of Marked Variability of earlier tracing and persisten t asymptomatic hypotensive baseline. Datetime: 05/07/2019 02:45 VITAL SIGNS NBP Sys/Natalie/Mean (mmHg): 83 : 59 : 64 Resting Tone IUP (mmHg): 0 Intensity IUP (mmHg): 30-40 [place] Units (mmHg): 70 Datetime: 05/07/2019 02:30 VAGINAL EXAM Dilatation (cm): 5.0 Effacement (%): 90 Station: -2 Exam by: Dr. Fernández Datetime: 05/07/2019 02:08 ANESTHESIA Anesthesia Plans: pt sleeps Datetime: 05/07/2019 02:02 Temperature (C): 36.6 Datetime: 05/07/2019 02:00 Respirations: 16 Oxygen Amount (LPM): 0 Datetime: 05/07/2019 01:45 Actions for Decelerations: Side to Side Datetime: 05/07/2019 01:37 Contraction Comments: ongoing troubleshooting of IUPC Datetime: 05/07/2019 01:31 MEDICATIONS Pitocin (milliunits): Discontinued Datetime: 05/07/2019 01:15 MATERNAL ASSESSMENT Level of Consciousness: Fully Conscious DTR's/Clonus: DTRs 1+ Headache: Denies Breath Sounds, Left: Clear and Equal Breath Sounds, Right: Clear and Equal Nausea/Vomiting: Denies RUQ Epigastric Pain: Denies Datetime: 05/07/2019 00:24 Anesthesia Comments: anesthesia returns to beside for bolus. modified vaginal exam at this time. Pa tient not in a phase of advanced dilitation at this time. Datetime: 05/07/2019 00:00 Amniotic Fluid Color: Clear Anesthesia Level Check: assessment done by provider and patient in pain. no determitome level, afshin ent has complete sensation. Datetime: 05/06/2019 23:01 Antibiotics: Ampicillin IV 1 Gm Datetime: 05/06/2019 22:34 Patient Position/Activity: Right Lateral Datetime: 05/06/2019 21:49 Medication Comments: Bicitra 15 ml PO Datetime: 05/06/2019 21:32 Antiemetics/Antacids: Zofran (mg) @ 4 Datetime: 05/06/2019 19:05 Comments: positional difficulty sustaining FHT. Provider and patient agrees to plan of care for RN to place FSE. Datetime: 05/06/2019 18:31 Pain Goal: 2 Pain Assessment Comments: patient states discomfort is tolerable and states she chooses not to util ize her PCEA button Datetime: 05/06/2019 18:00 Oxygen Method: Room Air Datetime: 05/06/2019 17:00 Pain Presence: Intermittent Pain Type: Contraction Pain Location: Abdomen; Back Pain Relief Measures: Pain Medication Given Pain Coping: Talking Through Contractions Comfort Measures: Breathing/Relaxation; Family Support Datetime: 05/06/2019 16:14 Temperature Route: Oral Datetime: 05/06/2019 15:58 Monitor Interventions for UA: IUPC Inserted Membrane Status: Ruptured Membranes Rupture Method: Artificial Amniotic Fluid Amount: Moderate Amniotic Fluid Odor: Normal Datetime: 05/06/2019 13:52 Cervical Ripening Agents: Kam Balloon; Cytotec @ Datetime: 05/06/2019 12:31 Provider Notified (Name): Notification Reason: Status Update; Status; Labor Status; Uterine Activity; Pain; Maternal Vi naomie Sign Change Datetime: 05/06/2019 12:05 I/O Interventions: Kam Cath Inserted Datetime: 05/06/2019 11:30 PATIENT CARE IV/Blood Work: New IV Bag Hung Datetime: 05/06/2019 10:07 Epidural Procedure Other: Pump Started Datetime: 05/06/2019 09:59 Epidural Procedure: Loading Dose Datetime: 05/06/2019 09:41 PROCEDURE TIME OUT Procedure Verify: Correct Patient Identity; Correct Side and Site are Marked; Accurate Procedure Co nsent Form; Agreement on Procedure to be Done; Correct Patient Position; Relevant Images and Results are Properly Labeled and Displayed Epidural Positioning: Sitting Datetime: 05/06/2019 07:29 TEACHING Instructional Method: Verbal Plan of Care: Vaginal Delivery; Induction Unit Routine: Call Paredes Labor/Induction: Labor Stages; Activity Pain Management: Pain Scale/Goals; Comfort Measures Medications: Pitocin Datetime: 05/06/2019 06:00 Stage of : 17 Datetime: 05/05/2019 23:30 FHR Baseline Changes: No Baseline Change Datetime: 05/05/2019 23:23 Analgesics/Sedatives: Ambien (mg) @ 5
== END 2019-05-09 15:30 | disposition home or self-care (01) | DRG 787 ==
LOC: WFO 16:52 → FBP 16:55 → WFO 17:39 → FBP 17:40
PROVIDERS: ADMIT Obstetrics & Gynecology; ATTEND Obstetrics & Gynecology
PROC: 0U7C7ZZ Dilation of Cervix, Via Natural or Artificial Opening (ICD-10-PCS; 2019-05-06)
PROC: 3E033VJ Introduction of Other Hormone into Peripheral Vein, Percutaneous Approach (ICD-10-PCS; 2019-05-06)
PROC: 10907ZC Drainage of Amniotic Fluid, Therapeutic from Products of Conception, Via Natural or Artificial Opening (ICD-10-PCS; 2019-05-06)
PROC: 10H07YZ Insertion of Other Device into Products of Conception, Via Natural or Artificial Opening (ICD-10-PCS; 2019-05-06)
PROC: 10D00Z1 Extraction of Products of Conception, Low, Open Approach (ICD-10-PCS; principal; 2019-05-07 03:30)
DX: O36.63X0 Maternal care for excessive fetal growth, third trimester, not applicable or unspecified (principal); O98.32 Other infections with a predominantly sexual mode of transmission complicating childbirth; O99.824 Streptococcus B carrier state complicating childbirth; O61.0 Failed medical induction of labor; O61.1 Failed instrumental induction of labor; O64.8XX0 Obstructed labor due to other malposition and malpresentation, not applicable or unspecified; O26.893 Other specified pregnancy related conditions, third trimester; O99.214 Obesity complicating childbirth; A60.00 Herpesviral infection of urogenital system, unspecified; O76 Abnormality in fetal heart rate and rhythm complicating labor and delivery; O77.0 Labor and delivery complicated by meconium in amniotic fluid; Z3A.39 39 weeks gestation of pregnancy; Z37.0 Single live birth; Z91.410 Personal history of adult physical and sexual abuse; Z79.899 Other long term (current) drug therapy; Z79.82 Long term (current) use of aspirin; Z67.11 Type A blood, Rh negative
CPT/HCPCS: 36415; 83033; 85025; 86850; 86900; 86901; 86920; A9270; J0131; J1170; J2795; J7120

== ENCOUNTER 2022-02-08 14:43 | Outpatient (CLI) | payer OTHER ==
[2022-02-09 08:41] VITALS: BP 100/72
--- NOTE | 2022-02-09 08:41 | SLEEP CARE CONSULTATION ---
Information from patient questionnaire entered by Maverick Lowery. I have reviewed and concur with the information entered by Maverick Lowery. This document represents the service I personally performed and the decisions made by me, Antonino Harrell MD, [facility]. History of Present Illness Service Date and Time: 02/08/2022 1443 Reason for Visit: New patient Chief Complaint: reports: Insomnia, Snoring, Observed pauses in breathing, Fatigue, Frequent awakenings at night Date of Onset: 6 months, snoring longer Usual bedtime: 830 Time it takes to fall asleep: 30 mins Snores at night: Yes Observed to quit breathing while asleep: Yes Sleeps alone due to snoring: No Number of times waking at night: 3-4 Reasons for waking at night: reports: Gasping for air, Bathroom Toss, Turn, or Twitch while sleeping: Yes Recalls having dreams: Yes Usually gets out of bed at: 830 Feels refreshed in the morning: No Morning headache: No Sleepy or fatigued during the day: Yes Ever fallen asleep while driving: No Takes day naps: No Prior sleep studies: No Additional HPI information: I have the pleasure of seeing Ms. Bynum today regarding the possibility of her having obstructive sleep apnea. As you know, she is a 26-year-old lady who complains of insomnia, frequent awakenings, persistent fatigue, and excessive daytime sleepiness. The patient tells me that she normally goes to bed around 8:30 pm, and it takes her approximately 30 minutes to fall asleep. She has been told that she snores loudly and irregularly at night. She has also been observed to stop breathing in her sleep. Her sleeps in the same bed. He uses a CPAP. She can recall waking up on the average of 3 - 4 times during the night. Most of the time she wakes up because of having to use the bathroom. She has awakened occasionally because of her own snoring, choking, and having to gasp for air. There is not a lot of tossing and turning in her sleep. Generally, she can recall having dreams. In the morning she usually gets up out of the bed around 8:30 a.m. not feeling refreshed nor rested. She usually does not have a morning headache. During the day she does not feel sleepy or fatigued. Her score on Portal Sleepiness Scale is 4 out of 24. She never has fallen asleep while driving nor has had any accident due to sleepiness. She usually does not take naps during the day. She complains of restless leg synd sophie. She uses magnesium cream occasionally. She reports having impaired concentration during the day. - Parasomnia Symptoms Ever been unable to move upon waking from sleep: No Walks in sleep: No Talks in sleep: No Ever acted out dreams in sleep: No Ever felt weak in the knees when startled or emotional: No Bothered by creepy, crawly, restless sensations in legs: Yes Problems with memory or concentration: Yes Subjective Initial [place] Sleepiness Scale score: 4 (02/08/22) Past Medical History Past Medical History: reports: Anxiety, Depression Social History The patient's occupation is a [employer]. Patient is and lives in [place]. Have you smoked in the past 12 months: No Alcohol use: No Caffeine use: Yes Caffeine amount and frequency: 3 coffees daily Family History Family history of sleep disordered breathing: Yes Family Hx Sleep Apnea: Mother: Snoring, Sleep apnea - Untreated, Grandparent: Snoring, Sleep apnea - Treated Allergies and Home Medications Drug allergies reviewed: Yes Home medication list reviewed: Yes Allergy and home medication list: Allergies oxycodone Adverse Reaction (Verified 08/22/16 15:16) Itching shrimp Adverse Reaction (Verified 05/06/19 03:53) Itching Review of Systems Weight gain over past 5 years: 60 Cardiovascular: denies: high blood pressure, palpitations, chest pain, irregular heart rate or pulse, leg or foot swelling, have to sleep sitting up, other Respiratory: denies: shortness of breath, wheeze, sputum production, chronic cough, other Gastrointestinal: denies: heartburn, difficulty swallowing, nausea, vomitting, diarrhea, abdominal pain, other Urinary: denies: incontinence, frequency, urgency, impotence, other Neurological: denies: headaches, seizure, head trauma, disorientation, speech dysfunction, gait or balance problems, fainting or unconsciousness, other Psychiatric: reports: anxiety, depression Ear/Nose/Throat: denies: nasal congestion, sinus problems, nose bleeds, dry mouth/throat, hoarseness, injury to nose, tonsillectomy, wisdom teeth removed, other Endocrine: denies: thyroid disease, history of goiter, sluggishness, too hot or cold, excessive thirst, increased appetite, increased urination, unexplained weakness, other Musculoskeletal: reports: back pain Immunologic: denies: sneezing, rash, itching, allergies to food or environment, other Physical Exam Vital signs obtained and entered by: ELIEZER PEÑALOZA Blood Pressure: 100/72 (LEFT ARM ) Cuff size: long Heart Rate: 83 O2 Saturation: 97 Height: 5 ft 9 in Weight: 287 lb Body Mass Index: 42.3 BMI Classification: Morbidly Obese Neck circumference: 16.5 (INCHES ) Mood/affect: Normal HEENT: No craniofacial malformation Nostrils: patent to airflow Turbinates: normal Septum: midline Mouth and throat: narrow oropharynx Hard palate: normal Uvula: normal Uvula visualization: 25% Mallampati Class III Tongue: normal in size Tonsils: small Chin and jaw: normal size and position Neck: normal w/o lymphadenopathy or thyromegaly Heart: regular rate and rhythm Lungs: clear bilaterally Extremities: no edema or clubbing Neurologic: intact Impression and Plan IMPRESSION: 1. Obstructive Sleep Apnea-Hypopnea Syndrome, as evident by history of loud and irregular snoring, observed cessation of breath while asleep, frequent awakenings during the night, nocturnal choking, unrefreshed sleep, and cognitive impairment. Narrow oropharynx and obesity are common predisposing factors for obstructive sleep apnea-hypopnea syndrome. I recommend proceeding to polysomnography to confirm the diagnosis and to assess severity. I informed the patient of what the sleep studies involve and after some discussion, she would like to first have a home sleep apnea test (HSAT) because she has small children at home and cannot leave them. Plan: 1. Schedule a home sleep apnea test (HSAT) 2. Return for follow up after the test. Follow up recommended for: Weight management Visit Type: In Office Time Spent with Patient (minutes): 15 Provider Statement: I spent 100% of the Face to Face Visit with the patient with greater than 50% spent counseling the patient and coordination of care.
== END 2022-02-08 14:44 | disposition home or self-care (01) ==
LOC: SC 14:43
PROVIDERS: ATTEND Internal Medicine Pulmonary Disease
DX: R06.83 Snoring (principal); G47.8 Other sleep disorders; R06.81 Apnea, not elsewhere classified; E66.01 Morbid (severe) obesity due to excess calories; Z68.41 Body mass index [BMI] 40.0-44.9, adult
CPT/HCPCS: 99202; 99212

== ENCOUNTER 2022-03-06 08:00 | Outpatient (CLI) | payer OTHER | END 2022-03-06 23:59 | disposition home or self-care (01) | LOC: LAB.N 08:00 | PROVIDERS: ATTEND Registered Nurse | DX: R82.79 Other abnormal findings on microbiological examination of urine (principal) | CPT/HCPCS: 87086 ==

== ENCOUNTER 2022-04-08 09:00 | Outpatient (CLI) | payer OTHER | END 2022-04-08 23:59 | disposition home or self-care (01) | LOC: SC 09:00 | PROVIDERS: ATTEND Internal Medicine Pulmonary Disease | DX: Z53.9 Procedure and treatment not carried out, unspecified reason (principal) | CPT/HCPCS: 95806 ==

== ENCOUNTER 2022-04-12 09:23 | Outpatient (CLI) | payer OTHER | END 2022-04-12 09:24 | disposition home or self-care (01) | LOC: SC 09:23 | PROVIDERS: ATTEND Internal Medicine Pulmonary Disease | DX: G47.33 Obstructive sleep apnea (adult) (pediatric) (principal); R09.02 Hypoxemia; E66.9 Obesity, unspecified; Z68.41 Body mass index [BMI] 40.0-44.9, adult | CPT/HCPCS: 95806 ==

== ENCOUNTER 2022-05-10 13:38 | Outpatient (CLI) | payer OTHER ==
--- NOTE | 2022-05-10 13:08 | SLEEP CARE CONSULTATION ---
Information from patient questionnaire entered by Michael Gale. I have reviewed and concur with the information entered by Michael Gale. This document represents the service I personally performed and the decisions made by me, Antonino Harrell MD, [facility]. History of Present Illness Service Date and Time: 05/10/2022 1300 Initial [place] Sleepiness Scale score: 4 (02/08/22) Current [place] Sleepiness Scale score: 6 (05/10/22) Additional HPI information: Ms. Bynum returned for follow up of the home sleep apnea test (HSAT) she had on 04/12/2022. The test showed moderate obstructive sleep apnea-hypopnea, with an AHI of 23.5/hr and kayce SaO2 of 87%. During the study, the patient had 13 apneas (13 obstructive, 0 central, 0 mixed) and 52 hypopneas. The longest episode lasted 85.5 seconds. The respiratory events occurred more frequently during supine sleep (supine AHI was 32.3 and non-supine, 17.82). Hypoxemia was mild, with the lowest oxygen saturation of 87 % and 1.7 minutes with SaO2 under 90%. Baseline oxygen saturation was normal (Average oxygen saturation was 95%). The patient was informed of these findings. I explained to her the pathophysiology behind obstructive sleep apnea. We then spent quite a bit of time discussing different treatment options. For mild obstructive sleep apnea, surgery and oral appliance are alternatives to nasal CPAP therapy but in moderate or severe cases, nasal CPAP is the most effective and reliable treatment. After some discussion, she opted to go with the nasal CPAP therapy. I explained to her how CPAP machine works and what to expect when using the machine. She is encouraged to use CPAP every night especially in the first 2 to 3 nights in order to get used to it. She should call me or her CPAP supplier to discuss any mechanical problem that may occur. If she snores while wearing the CPAP or feels like she needs more air from the machine, she should notify me and I will increase the pressure. Sleep Study - Results Type of Sleep Study: Home sleep study (COMPLETED 04.12.22) Prior sleep studies: No Allergies and Home Medications Drug allergies reviewed: Yes Home medication list reviewed: Yes Allergy and home medication list: Allergies oxycodone Adverse Reaction (Verified 08/22/16 15:16) Itching shrimp Adverse Reaction (Verified 05/06/19 03:53) Itching Review of Systems Review of systems same as previous: Yes Physical Exam Vital signs obtained and entered by: VIA PHONE MICHAEL Coronado MA Height: 5 ft 9 in (PER PT) Weight: 286 lb (PER PT) Body Mass Index: 42.2 BMI Classification: Morbidly Obese Impression and Plan IMPRESSION: 1. Obstructive Sleep Apnea-Hypopnea Syndrome, moderate associated with mild hypoxemia. Possibly, this is the cause of the patients symptoms of unrefreshed sleep, and excessive daytime sleepiness. As mentioned above, the patient will be started on an autoCPAP set between 4 and 12 cmH2O. Depending on her response and compliance she may be brought back for an overnight CPAP tit ration study. PLAN: 1. Prescription made for an autoCPAP, heated humidifier, and related supplies through [employer] in [facility]. 2. Attempt to lose weight. 3. The patient was again cautioned on driving. She should be extra careful when driving until her sleepiness resolves completely on nasal CPAP therapy. 4. Return for follow up after one month of using the CPAP. Counseling Topics: Weight control Prescriptions: Auto CPAP Follow up with Sleep Care in: 1-2 months Visit Type: Telehealth Video Video Type: Write.my Patient Location: car Location of Provider: Office Patient agrees and consents to this telehealth visit type: Yes Patient agrees to have their insurance billed: Yes Time Spent with Patient (minutes): 15 Provider Statement: I spent 100% of the Telehealth Video Call with the patient with greater than 50% spent counseling the patient and coordination of care.
== END 2022-05-10 13:39 | disposition home or self-care (01) ==
LOC: SC 13:38
PROVIDERS: ATTEND Internal Medicine Pulmonary Disease
DX: G47.33 Obstructive sleep apnea (adult) (pediatric) (principal); E66.01 Morbid (severe) obesity due to excess calories; Z68.41 Body mass index [BMI] 40.0-44.9, adult

== ENCOUNTER 2022-11-25 08:00 | Outpatient (CLI) | payer OTHER ==
[2022-11-25 21:26] LABS: CHLAMYDIA TRACHOMATIS DNA NEGATIVE (NEGATIVE); NEISSERIA GONORRHOEAE DNA NEGATIVE (NEGATIVE); TRICHOMONAS VAGINALIS DNA NEGATIVE (NEGATIVE)
== END 2022-11-25 23:59 | disposition home or self-care (01) ==
LOC: LAB.WC 08:00
PROVIDERS: ATTEND Nurse Practitioner
DX: Z11.3 Encounter for screening for infections with a predominantly sexual mode of transmission (principal)
CPT/HCPCS: 87491; 87591; 87661

== ENCOUNTER 2023-11-08 15:25 | Outpatient (CLI) | payer OTHER ==
[2023-11-08 15:41] LABS: HCT - HEMATOCRIT 41.9 % (37.0-47.0); HGB - HEMOGLOBIN 13.7 g/dL (12.0-16.0); MEAN CORPUSCULAR HGB CONC 32.7 g/dL (32.0-36.0); MEAN CORPUSCULAR VOLUME 88.6 fL (81.0-99.0); MEAN PLATELET VOLUME 9.8 fL (7.9-10.8); RED BLOOD COUNT 4.73 10^6/uL (4.20-5.40); RED CELL DISTRIBUTION WIDTH 12.4 % (12.0-15.0); WHITE BLOOD COUNT 8.8 x10^3/uL (4.8-10.8)
== END 2023-11-08 15:26 | disposition home or self-care (01) ==
LOC: LAB 15:25
PROVIDERS: ATTEND Obstetrics & Gynecology
DX: O36.80X0 Pregnancy with inconclusive fetal viability, not applicable or unspecified (principal)
CPT/HCPCS: 36415; 84702; 85027; 86900; 86901

== ENCOUNTER 2023-11-08 22:55 | Outpatient (CLI) | payer OTHER ==
--- NOTE | 2023-11-09 00:15 | Ultrasound Report ---
PROCEDURE: OB 1st Trimester w/TV INDICATIONS: OF UNKNOWN LOCATION OUTSIDE/PRIOR DATING DATA: Last menstrual period (LMP): 10/13/2023. LMP-based estimated date of delivery (SHANA): 07/19/2024. TECHNIQUE: Real-time scanning was performed of the fetus and maternal pelvic organs, with image documentation. Endovaginal scanning was also performed to better visualize the fetus and maternal ovaries. COMPARISON: None. FINDINGS: No intrauterine is seen. Maternal organs: Endometrium is thickened measuring 17 mm. Right ovarian corpus luteal cyst versus s uspicion for ectopic , measuring 2.3 cm. Free fluid is seen within the right adnexa. IMPRESSION: 1.Right ovarian corpus luteal cyst versus ectopic measuring 2.3 cm. Free fluid is seen with in the right adnexa. 2.No intrauterine seen. The atrium is thickened measuring 17 mm. Agree with preliminary interpretation provided to the ordering provider by the ultrasound technologis t. Reviewed by: Krishan Sherwood MD on 11/09/2023 12:14 AM PDT Approved by: Krishan Sherwood MD on 11/09/2023 12:14 AM PDT Station ID: [id number]
== END 2023-11-08 22:56 | disposition home or self-care (01) ==
LOC: DI 22:55
PROVIDERS: ATTEND Obstetrics & Gynecology
DX: O36.80X0 Pregnancy with inconclusive fetal viability, not applicable or unspecified (principal)
CPT/HCPCS: 36415; 84702; 85027; 86900; 86901

== ENCOUNTER 2023-11-10 15:04 | Outpatient (CLI) | payer OTHER ==
[2023-11-10 15:13] LABS: BASOPHILS % (AUTO) 0.1 %; EOSINOPHILS % (AUTO) 0.2 %; HCT - HEMATOCRIT 42.4 % (37.0-47.0); LYMPHOCYTES # (AUTO) 3.9 10^3/uL (1.5-3.5); LYMPHOCYTES % (AUTO) 33.2 %; MEAN CORPUSCULAR HEMOGLOBIN 29.4 pg (27.0-31.0); MEAN CORPUSCULAR VOLUME 89.1 fL (81.0-99.0); MONOCYTES # (AUTO) 0.7 10^3/uL (0.0-1.0); MONOCYTES % (AUTO) 5.9 %; NEUTROPHILS % (AUTO) 60.3 %; PLT - PLATELET COUNT 288 10^3/uL (130-450); RED BLOOD COUNT 4.76 10^6/uL (4.20-5.40); RED CELL DISTRIBUTION WIDTH 12.3 % (12.0-15.0); WHITE BLOOD COUNT 11.6 x10^3/uL (4.8-10.8)
== END 2023-11-10 15:05 | disposition home or self-care (01) ==
LOC: LAB 15:04
PROVIDERS: ATTEND Obstetrics & Gynecology
DX: O36.80X0 Pregnancy with inconclusive fetal viability, not applicable or unspecified (principal)
CPT/HCPCS: 36415; 84702; 85025; 86900; 86901

== ENCOUNTER 2023-11-14 13:57 | Emergency (ER) | payer OTHER ==
[2023-11-14] MEDS ORDERED: LORazepam 1 MG TABLET ONE (14:40)
[2023-11-14 16:02] LABS: ALBUMIN 4.4 g/dL (3.2-5.5); ALBUMIN/GLOBULIN RATIO 1.4 (1.0-2.2); BILIRUBIN,TOTAL 0.4 mg/dL (0.2-1.0); CALCIUM 9.8 mg/dL (8.5-10.3); CREATININE 0.8 mg/dL (0.6-1.3); POTASSIUM 4.1 mmol/L (3.5-4.5); TOTAL PROTEIN 7.5 g/dL (6.4-8.9)
[2023-11-14 16:03] LABS: BASOPHILS % (AUTO) 0.3 %; EOSINOPHILS % (AUTO) 0.3 %; HCT - HEMATOCRIT 41.2 % (37.0-47.0); HGB - HEMOGLOBIN 13.5 g/dL (12.0-16.0); LYMPHOCYTES # (AUTO) 2.9 10^3/uL (1.5-3.5); LYMPHOCYTES % (AUTO) 38.1 %; MEAN CORPUSCULAR HEMOGLOBIN 29.3 pg (27.0-31.0); MEAN CORPUSCULAR HGB CONC 32.8 g/dL (32.0-36.0); MEAN CORPUSCULAR VOLUME 89.4 fL (81.0-99.0); MEAN PLATELET VOLUME 10.1 fL (7.9-10.8); MONOCYTES # (AUTO) 0.7 10^3/uL (0.0-1.0); MONOCYTES % (AUTO) 8.8 %; NEUTROPHILS # (AUTO) 3.9 10^3/uL (1.5-6.6); NEUTROPHILS % (AUTO) 52.2 %; PLT - PLATELET COUNT 282 10^3/uL (130-450); RED BLOOD COUNT 4.61 10^6/uL (4.20-5.40); RED CELL DISTRIBUTION WIDTH 12.5 % (12.0-15.0); WHITE BLOOD COUNT 7.5 x10^3/uL (4.8-10.8)
--- NOTE | 2023-11-14 16:03 | ED Physician Documentation ---
History of Present Illness - Stated complaint Stated Complaint: ABD PX, PREG - History obtained from History obtained from: Patient - Additonal information Additional information: Who presents for evaluation of about 1 weeks worth of right pelvic pain in . LMP was October 14 making her 4 weeks and 5 days today. She is also had some anxiety, cold sweats. Ultrasound from clinic reviewed dated November 08 showing "right ovarian corpus luteal cyst versus ectopic measuring 2.3 cm with free fluid in the right adnexa." PD PAST MEDICAL HISTORY - Past Medical History Cardiovascular: None Respiratory: None Neuro: Other (sciatica, low back pain, frequent tingling in lower extremities w/pain) Endocrine/Autoimmune: None Musculoskeletal: Chronic back pain - Past Surgical History Past Surgical History: Yes Ortho: Other (microdiscetomy x2 at L4-5) /MEDICAL STAFF DIRECTOR: Dilation and currettage - Present Medications Home Medications: Ambulatory Orders Medication Instructions Recorded Confirmed Docusate Sodium 250Mg Capsule 250 mg PO DAILY #30 capsule 07/04/16 [Colace 250Mg Capsule] Glycerin Adult Supp [Glycerin 1 each OH DAILY #10 supp 07/04/16 Suppository] Hydrocodone/Ibuprofen 07/04/16 [Hydrocodone-Ibuprofen 10-200] predniSONE [Deltasone] 20 mg PO [id number] #21 tab 07/04/16 - Allergies Allergies/Adverse Reactions: Allergies Allergy/AdvReac Type Severity Reaction Status Date / Time oxycodone AdvReac Itching Verified 08/22/16 15:16 shrimp AdvReac Itching Verified 05/06/19 03:53 - Social History Does the pt smoke?: No Smoking Status: Never smoker Does the pt drink ETOH?: No Does the pt have substance abuse?: No - Immunizations Immunizations are current?: Yes - POLST Patient has POLST: No PD ED PE NORMAL - Vitals Vital signs reviewed: Yes - General General: Alert and oriented X 3, No acute distress - Abdomen Abdomen: Normal bowel sounds, Soft, Non tender - Neuro Neuro: Alert and oriented X 3, Normal speech Results - Vitals Vitals: Oxygen O2 Source Room air PD Medical Decision Making - ED course ED course: She presents with concern for ectopic . Shortly after my initial evaluation after looking at the previous ultrasound result I spoke with Dr. Rivas, our on-call IT SERVICE TECHNICIAN who felt the patient needed another ultrasound and workup was ongoing when the patient requested to leave AMA. I had a long discussion with her about the possible risks to her which included or disability if she does have an unrecognized or untreated ectopic and she voices understanding. Subsequently I spoke with Dr. Rivas again who will order the patient ultrasound as stat outpatient. Departure - Departure Disposition: 07 Against Medical Advice Clinical Impression: Abdominal pain affecting
[2023-11-14 16:09] VITALS: BP 124/59; O2SAT 100
== END 2023-11-14 16:09 | disposition left against medical advice (07) ==
LOC: ED 15:59
DX: O99.891 Other specified diseases and conditions complicating pregnancy (principal); R10.9 Unspecified abdominal pain; Z53.29 Procedure and treatment not carried out because of patient's decision for other reasons; Z3A.01 Less than 8 weeks gestation of pregnancy
CPT/HCPCS: 36415; 80053; 83690; 84702; 85025; 86900; 86901; 99283; J8499

== ENCOUNTER 2023-11-17 13:45 | Outpatient (CLI) | payer OTHER ==
--- NOTE | 2023-11-17 19:11 | Ultrasound Report ---
PROCEDURE: OB 1st Trimester w/TV INDICATIONS: OF UNKNOWN LOCATION, positive test, beta hCG on 11/14/2023 reported as 3975.5 OUTSIDE/PRIOR DATING DATA: Last menstrual period (LMP): 10/13/2023. LMP-based estimated date of delivery (SHANA): 07/19/2024. First dating scan (date and location): N/A Estimated date of delivery (SHANA) from first dating scan: N/A. TECHNIQUE: Real-time scanning was performed of the fetus and maternal pelvic organs, with image documentation. Endovaginal scanning was also performed to better visualize the fetus and maternal ovaries. COMPARISON: OB ultrasound 11/08/2023 FINDINGS: Probable intrauterine gestational sac visualized. No crown-rump length visualized. Trace fr ee fluid in the pelvis. Embryo: Not visualized Heart rate: Not detected Other: No perigestational fluid collection. Measurement variability in dating: +/- 4 weeks by LMP, +/- 7 days by mean sac diameter (use before 6 weeks gestation if crown-rump length not able to be measured), +/- 5 days by crown-rump length (6-12 weeks gestation). Maternal organs: Poorly visualized, but appear within normal limits. IMPRESSION: Probable intrauterine gestational sac visualized. Bilateral ovaries are poorly visualized, however no definite sonographic evidence of ectopic . Right greater than left pelvic free fluid is aga in seen. Recommend continued beta hCG testing and short interval follow-up pelvic ultrasound. Recomme nd clinical follow-up with VEHICLE FARE COLLECTOR. Reviewed by: Mohini Jessica MD, PhD on 11/17/2023 7:09 PM PDT Approved by: Mohini Jessica MD, PhD on 11/17/2023 7:09 PM PDT Station ID: [id number]
== END 2023-11-17 13:46 | disposition home or self-care (01) ==
LOC: DI 13:45
PROVIDERS: ATTEND Obstetrics & Gynecology
DX: O26.90 Pregnancy related conditions, unspecified, unspecified trimester (principal); Z3A.00 Weeks of gestation of pregnancy not specified